=== PATIENT | male | born 1970 | race American Indian/Alaskan Native ===

== ENCOUNTER 2021-04-09 13:59 | Outpatient (CLI) | payer OTHER, SELFPAY ==
--- NOTE | 2021-04-09 14:17 | XRR_ITS ---
PROCEDURE INFORMATION: Exam: XR Thoracolumbar Spine Exam date and time: 04/09/2021 2:43 PM Age: 50 years old Clinical indication: Low back pain; Prior surgery; Surgery type: L4-L5 spinal fusion; Additional info: New worsening thoracolumbar pain TECHNIQUE: Imaging protocol: XR of the thoracolumbar spine. Views: 2 views. COMPARISON: No relevant prior studies available. FINDINGS: Bones/joints: The thoracic spine is not included above the upper T6 level. Mild left L3-L4 vertebral body marginal osteophytes. Soft tissues: Unremarkable. Other findings: No destructive bony process identified. No acute bony abnormality identified. XR/XR thoracolumbar junct [id number] IMPRESSION: No acute bony abnormality identified.
== END 2021-04-09 14:00 | disposition home or self-care (01) ==
LOC: RAD 14:07
PROVIDERS: Visit Provider Family Medicine
DX: M54.6 Pain in thoracic spine (principal); M54.5 Low back pain
CPT/HCPCS: 72080